=== PATIENT | female | born 1970 | race Caucasian/White ===

== ENCOUNTER → 2017-02-22 | Outpatient (CLI) | payer BC ==
[~2017-02-22] MED LIST: NS 100 ML IV 100 ML IV ONE
--- NOTE | 2017-02-22 11:24 | CT ---
CT abdomen and pelvis with and without contrast Indication: Ventral hernia and lower quadrant mass Comparison: The none available Technique: Multiple axial images of the abdomen and pelvis were obtained from the lung bases to the pubic symph ysis before and after the administration of IV contrast. Radiation dose reduction techniques were performed utilizing adjustment for MA/kVP based on patient body size. Findings: The lung bases are clear. Precontrast imaging demonstrates no pancreatic calcification or nephrolith iasis. Post-contrast imaging demonstrates mild intrahepatic and extrahepatic bile duct dilatation wi thout obstructing stone or mass. Prior cholecystectomy is noted. No focal hepatic lesion. The spleen , pancreas and adrenal glands are normal. Neither kidney demonstrates evidence of hydronephrosis or mass. Upper GI tract demonstrates postsurgical change consistent with prior gastric bypass. There is no dilatation of the bypass stomach or biliary limb of the bypass. Ventral abdominal wall hernia wi th a hernia neck measuring approximately 4.8 cm on axial image 64 contains several loops of nonobstr ucted small bowel. No bowel wall thickening or adjacent free fluid within the hernia. Urinary bladde r is unremarkable . No pelvic or adnexal mass . Calcifications are noted within the left adnexa . Th e rectum and colon are unremarkable. Abdominal aorta is normal in caliber. No pelvic free fluid or a denopathy. Review of bone windows demonstrates no acute osseous abnormality. Impression: 1.Lower abdominal ventral hernia with a hernia neck measuring 4.8 cm in greatest diameter containin g nonobstructed loops of small bowel. No bowel wall thickening or adjacent free fluid identified to suggest strangulation. 2. Previous gastric bypass without evidence of complication. 3. Mild intrahepatic and extrahepatic bile duct dilatation, this can be seen after cholecystectomy h owever correlation with cholestatic function test is recommended. Reported By:
== END | disposition home or self-care (01) ==
LOC: RAD 09:44
PROVIDERS: ATTEND Specialist
DX: K43.9 Ventral hernia without obstruction or gangrene (principal); Z98.84 Bariatric surgery status
CPT/HCPCS: 74178; A4222